=== PATIENT | male | born 1995 | race Two or more races ===

== ENCOUNTER 2017-02-02 12:31 | Emergency (ER) | payer SELFPAY ==
[2017-02-02] MEDS ORDERED: NO HOME MEDICATION XX (12:35)
[2017-02-02] MEDS ORDERED: ERYTHROMYCIN1 GM OP (15:00)
== END 2017-02-02 15:05 ==
LOC: EDMED 12:31
DX: S05.02XA Injury of conjunctiva and corneal abrasion without foreign body, left eye, initial encounter (principal); X58.XXXA Exposure to other specified factors, initial encounter